=== PATIENT | male | born 1955 | race Caucasian/White ===

== ENCOUNTER → 2017-04-18 | Outpatient (CLI) | payer OTHER ==
[~2017-04-18] VITALS: Ht 179.7 cm; Wt 117.6 kg
[2017-04-18 12:47] VITALS: BP 139/75; PULSE 67; Ht 179.7 cm; Wt 117.6 kg
== END | disposition home or self-care (01) ==
LOC: C.NEUR 11:25
PROVIDERS: ATTEND Internal Medicine Pulmonary Disease
DX: G47.33 Obstructive sleep apnea (adult) (pediatric) (principal); R53.83 Other fatigue

== ENCOUNTER → 2017-07-10 | Outpatient (CLI) | payer OTHER | END | disposition home or self-care (01) | LOC: C.LABPBG 07:40 | PROVIDERS: ATTEND Physician Assistant Medical | DX: R53.83 Other fatigue (principal) ==

== ENCOUNTER → 2017-09-11 | Outpatient (CLI) | payer OTHER ==
[2017-09-11 12:31] LABS: GLUCOSE,FASTING 122 mg/dl (70-99)
[2017-09-11 12:34] LABS: ALT/SGPT 32 U/L (12-78); AST/SGOT 14 U/L (15-37)
[2017-09-11 12:35] LABS: HEMOGLOBIN A1C 5.3 % (4.5-5.6)
== END | disposition home or self-care (01) ==
LOC: C.LABPBG 09:20
PROVIDERS: ATTEND Internal Medicine
DX: R73.03 Prediabetes (principal); E78.5 Hyperlipidemia, unspecified

== ENCOUNTER → 2017-09-26 | Outpatient (CLI) | payer OTHER ==
[~2017-09-26] VITALS: Ht 180.3 cm; Wt 122.9 kg
[2017-09-26 13:07] VITALS: BP 152/83; PULSE 82; Ht 180.3 cm; Wt 122.9 kg
== END | disposition home or self-care (01) ==
LOC: C.NEUR 12:50
PROVIDERS: ATTEND Physician Assistant Medical
DX: G47.33 Obstructive sleep apnea (adult) (pediatric) (principal); E66.9 Obesity, unspecified; Z68.37 Body mass index [BMI] 37.0-37.9, adult; Z88.2 Allergy status to sulfonamides

== ENCOUNTER → 2017-11-15 | Outpatient (CLI) | payer OTHER ==
--- NOTE | 2017-11-15 09:01 | DIAGNOSTIC IMAGING REPORT ---
LEFT KNEE 4 VIEWS CLINICAL HISTORY: Left knee pain. FINDINGS: AP weightbearing, lateral, tunnel, and sunrise views of the left knee are obtained. No prior studies are available for comparison at the time of dictation. The skeletal structures appear osteopenic. No fracture is seen. There is moderate narrowing of the medial and patellofemoral compartments. The lateral compartment appears maintained. There are large marginal osteophytes, degenerative beaking of the tibial spine, and small patellar enthesophytes. No osteochondral defect is suggested on the tunnel view. There is benign appearing cortical sclerosis seen within the medial aspect of the proximal tibial metadiaphysis. No joint effusion is identified. The overlying soft tissues are within normal limits. There is mild atherosclerotic calcification of the popliteal artery. IMPRESSION: Osteopenia and arthritic change as above. No acute bony abnormality is identified in the left knee. Electronically signed by: Miguelito Aaron M.D. 11/15/2017 9:00 AM Dictated Date/Time: 11/15/2017 8:58 AM
== END | disposition home or self-care (01) ==
LOC: C.RAD 08:35
PROVIDERS: ATTEND Physician Assistant
DX: M25.562 Pain in left knee (principal); M85.862 Other specified disorders of bone density and structure, left lower leg

== ENCOUNTER → 2017-11-28 | Outpatient (CLI) | payer OTHER ==
[~2017-11-28] MED LIST: AMLO10TA2 PO; ASPI81CH2 PO; ATOR-24 PO; BUPR-267 PO; BUPR300T43 PO; LISI40TA PO; PRAZ2CAP3 PO
[2017-11-28 12:59] LABS: BASO % 0.2 %; BASO ABS # 0.01 K/uL (0-0.2); EOS % 2.9 %; EOS ABS # 0.16 K/uL (0-0.5); HEMATOCRIT 42.3 % (42-52); HEMOGLOBIN 14.6 g/dL (14.0-18.0); IG# 0.02 K/uL (0.00-0.02); LYMPH % 24.1 %; LYMPH ABS # 1.32 K/uL (1.2-3.4); MEAN CORPUSCULAR HEMOGLOBIN 31.1 pg (25-34); MEAN CORPUSCULAR HGB CONC 34.5 g/dl (32-36); MONO ABS # 0.71 K/uL (0.11-0.59); NEUT % 59.4 %; NEUT ABS # 3.25 K/uL (1.4-6.5); PLATELET COUNT 177 K/uL (130-400); RED CELL DISTRIBUTION WIDTH CV 12.7 % (11.5-14.5); RED CELL DISTRIBUTION WIDTH SD 41.6 fL (36.4-46.3); WHITE BLOOD COUNT 5.47 K/uL (4.8-10.8)
[2017-11-28 13:16] LABS: ALBUMIN 3.7 gm/dl (3.4-5.0); ALT/SGPT 53 U/L (12-78); BLOOD UREA NITROGEN 15 mg/dl (7-18); CALCIUM 9.2 mg/dl (8.5-10.1); CARBON DIOXIDE 28 mmol/L (21-32); CHOLESTEROL 128 mg/dl (0-200); CREATININE 0.98 mg/dl (0.60-1.40); GLUCOSE 104 mg/dl (70-99); POTASSIUM 3.9 mmol/L (3.5-5.1); SODIUM 138 mmol/L (136-145)
[2017-11-28 13:21] LABS: ALKALINE PHOSPHATASE 80 U/L (45-117); AST/SGOT 25 U/L (15-37); LDL CHOLESTEROL CALCULATED 75 mg/dl; TOTAL PROTEIN 6.8 gm/dl (6.4-8.2)
[2017-11-28 13:25] LABS: HEMOGLOBIN A1C 5.3 % (4.5-5.6)
== END | disposition home or self-care (01) ==
LOC: C.LABPBG 07:37
PROVIDERS: ATTEND Internal Medicine
DX: F33.2 Major depressive disorder, recurrent severe without psychotic features (principal); I10 Essential (primary) hypertension; R73.03 Prediabetes; N40.1 Benign prostatic hyperplasia with lower urinary tract symptoms; E78.5 Hyperlipidemia, unspecified

== ENCOUNTER → 2017-11-29 | Outpatient (CLI) | payer OTHER ==
--- NOTE | 2017-11-29 19:40 | DIAGNOSTIC IMAGING REPORT ---
MRI OF THE LEFT KNEE WITHOUT CONTRAST CLINICAL HISTORY: Left knee pain and swelling. COMPARISON STUDY: Left knee radiographs November 07, 2017. TECHNIQUE: Utilizing a 1.5 Liliya magnet and dedicated coil, multiplanar, multiecho imaging of the left knee was performed without intravenous or intraarticular contrast. FINDINGS: Alignment of the left knee is anatomic. Extensor mechanism is intact. There is a trace joint effusion. Note is made of a multiseptated 3.4 x 4.5 x 2.3 cm cystic abnormality posterior to the distal metadiaphysis of the left femur. Adjacent smaller cystic abnormalities are present. There are a few small loose bodies. The cruciate and collateral ligaments are intact. There is severe chondrosis within the medial compartment of the left knee. There is mild chondrosis within the lateral compartment. There is associated osteophytosis. There is moderate to severe chondrosis within the patellofemoral compartment with osteophytosis. There is a complex tear of the medial meniscus which is diminutive and partially extruded. There is no lateral meniscal tear. There is no suspicious marrow replacement. IMPRESSION: 1. Moderate to severe tricompartmental osteoarthritis of the left knee, most severe within the medial and patellofemoral compartments. 2. Complex tear of the medial meniscus which is diminutive and partially extruded. No lateral meniscal tear. 3. Intact cruciate and collateral ligaments. 4. 3.4 x 4.5 x 2.3 cm multiseptated cystic abnormality posterior to the distal metadiaphysis of the left femur with a few adjacent cystic foci. This could reflect a ganglion cyst or less likely a parameniscal cyst. 5. Trace left knee joint effusion with multiple small joint bodies. Electronically signed by: Gaudencio Rasheed M.D. 11/29/2017 7:38 PM Dictated Date/Time: 11/29/2017 7:26 PM
== END | disposition home or self-care (01) ==
LOC: C.MRI 18:27
PROVIDERS: ATTEND Physician Assistant
DX: S83.232A Complex tear of medial meniscus, current injury, left knee, initial encounter (principal); M17.12 Unilateral primary osteoarthritis, left knee; X58.XXXA Exposure to other specified factors, initial encounter

== ENCOUNTER → 2017-12-18 | Day surgery (SDC) | payer OTHER ==
[2017-12-07 16:44] VITALS: Ht 180.3 cm; Wt 123.2 kg
[~2017-12-18] VITALS: Ht 180.3 cm; Wt 123.2 kg
[~2017-12-18] MED LIST changes: +LIDOCAINE HCL 2% 2 ML VIAL (20MG/ML) ONE; +MELATAB2 PO; +PROPOFOL IV EMULSION 10 MG/ML 20 ML VIAL ONE; +SODIUM CHLORIDE 0.9% 500ML 500 ML IV ONE
--- NOTE | 2017-12-18 09:54 | Endo History and Physical ---
History & Physical Date of Service: Dec 18, 2017. Chief Complaint: Screening Referring Physician: Dr. Vallejo History of Present Illness 62 yo CM who presents for screening colonoscopy. Past Surgical History Hx Cardiac Surgery: No Hx Internal Defibrillator: No Hx Pacemaker: No Hx Abdominal Surgery: No Hx of Implantable Prosthesis: No Hx Post-Op Nausea and Vomiting: No Hx Cancer Surgery: No Hx Thoracic Surgery: No Hx Orthopedic: No Hx Urinary Tract Surgery: Yes ([facility] 2012) Family History None Social History Smoking Status: Never Smoker Hx Substance Use: No Hx Alcohol Use: No Allergies Coded Allergies: Sulfa Antibiotics (Verified Allergy, Unknown, HIVES, 12/18/17) Current Medications Reported Home Medications Medications Dose Route/Sig Max Daily Dose Days Date Category Melatonin Maximum Strengt (Melatonin) 5 Mg Tab 1 Tab PO HS 30 12/18/17 Reported Melatonin Maximum Strengt (Melatonin) 5 Mg Tab 1 Tab PO HS 30 12/18/17 Reported Prazosin (Prazosin HCl) 2 Mg Cap 2 Tab PO DAILY 12/07/17 Reported Zestril (Lisinopril) 40 Mg Tab 40 Mg PO DAILY 12/07/17 Reported Bupropion Hcl Xl (Bupropion Hcl) 300 Mg Tab 1 Tab PO DAILY 30 12/07/17 Reported Bupropion Hcl Er (Bupropion Hcl) 150 Mg Tab 1 Tab PO QAM 12/07/17 Reported Lipitor (Atorvastatin Calcium) 40 Mg Tab 1 Tab PO HS 90 12/07/17 Reported Aspirin 81 Mg Chw 1 Tab PO DAILY 30 12/07/17 Reported Norvasc (Amlodipine Besylate) 10 Mg Tab 1 Tab PO DAILY 30 12/07/17 Reported Vital Signs Weight (Kilograms): 123.18 Height (Feet): 5 Height (Inches): 11 Date Time Temp Pulse Resp B/P (MAP) Pulse Ox O2 Delivery O2 Flow Rate FiO2 12/18/17 09:20 36.7 69 18 141/89 (106) 98 Room Air Physical Exam General Appearance: WD/WN, no apparent distress Respiratory/Chest: Auscultation: breath sounds normal Cardiovascular: Heart Auscultation: RRR Abdomen: Bowel Sounds: normal Inspection & Palpation: soft, non-distended, no tenderness, guarding & rebound Assessment and Plan Assessment: 62 yo CM who presents for screening colonoscopy. Plan: Proceed with colonoscopy.
--- NOTE | 2017-12-18 10:38 | Discharge Instructions ---
Endoscopy Patient Instructions Date / Procedure(s) Performed Dec 18, 2017. Colonoscopy Allergy Information Coded Allergies: Sulfa Antibiotics (Verified Allergy, Unknown, HIVES, 12/18/17) Discharge Date / Findings Dec 18, 2017. Colon polyp Diverticulosis Internal hemorrhoids Medication Instructions OK to resume all medications today as prescribed Reported Home Medications Medications Dose Route/Sig Max Daily Dose Days Date Category Melatonin Maximum Strengt (Melatonin) 5 Mg Tab 1 Tab PO HS 30 12/18/17 Reported Melatonin Maximum Strengt (Melatonin) 5 Mg Tab 1 Tab PO HS 30 12/18/17 Reported Prazosin (Prazosin HCl) 2 Mg Cap 2 Tab PO DAILY 12/07/17 Reported Zestril (Lisinopril) 40 Mg Tab 40 Mg PO DAILY 12/07/17 Reported Bupropion Hcl Xl (Bupropion Hcl) 300 Mg Tab 1 Tab PO DAILY 30 12/07/17 Reported Bupropion Hcl Er (Bupropion Hcl) 150 Mg Tab 1 Tab PO QAM 12/07/17 Reported Lipitor (Atorvastatin Calcium) 40 Mg Tab 1 Tab PO HS 90 12/07/17 Reported Aspirin 81 Mg Chw 1 Tab PO DAILY 30 12/07/17 Reported Norvasc (Amlodipine Besylate) 10 Mg Tab 1 Tab PO DAILY 30 12/07/17 Reported Provider Instructions Activity Restrictions - No exercising or heavy lifting for 24 hours. - Do not drink alcohol the day of the procedure. - Do not drive a car or operate machinery until the day after the procedure. - Do not make any important decisions or sign important papers in 24 hours after the procedure. Following Day: - Return to full activity which may include returning to work/school. Diet Start your diet with liquids and light foods (jello, soup, juice, toast). Then eat your usual diet if not nauseated. Treatment For Common After Affects For mild abdominal pain, bloating, or excessive gas: - Rest - Eat lightly - Lie on right side Follow-Up Information Follow-up with as scheduled Anesthesia Information What You Should Know You have had a procedure that required some medicine to reduce anxiety and discomfort. This treatment is called moderate sedation. After receiving the treatment, you may be sleepy, but you will be able to breathe on your own. The effects of the treatment may last for several hours. Follow these instructions along with Activity/Diet recommendations noted above: * Do NOT do anything where dizziness or clumsiness would be dangerous. * Rest quietly at home today, then you can be up and about tomorrow. * Have a responsible person stay with you the rest of today. * You may have had an I.V. today. If so, you may take the dressing off later today. Recommendations Call your doctor if: * Trouble breathing * Continuous vomiting for more than 24 hours * Temperature above 101 degrees * Severe abdominal pain or bloating * Pain not relieved by pain medicine ordered * There is increased drainage or redness from any incision * A large amount of rectal bleeding greater than 2-3 tablespoons. (If you had a polyp/s removed or have hemorrhoids, a small amount of blood - from the rectum is to be expected.) * You have any unanswered questions or concerns. IN THE EVENT OF A SERIOUS EMERGENCY, GO TO THE NEAREST EMERGENCY ROOM Your discharge instructions were prepared by provider Ignacio Fonseca. Patient Instructions Signature Page Jaswant Sahil Patient (or Guardian) Signature/Date: I have read and understand the instructions given to me by my caregivers. Caregiver/RN/Doctor Signature/Date: The above-named patient and/or guardian has received patient instructions on this date. + Original Patient Signature Page (only) stays with chart. Please make copy for patient.
--- NOTE | 2017-12-18 10:41 | GI REPORT ---
Patient Name: Jaswant Baxter Procedure Date: 12/18/2017 9:54 AM Date of : 1955 Admit Type: Outpatient Age: 62 Gender: Male Attending MD: Ignacio Fonseca DO Procedure: Colonoscopy Providers: Ignacio Fonseca DO Referring MD: Denver Vallejo Indications: Screening for colorectal malignant neoplasm Medicines: Monitored Anesthesia Care Complications: No immediate complications. Estimated Blood Loss: Estimated blood loss: none. Procedure: Pre-Anesthesia Assessment: - Prior to the procedure, a History and Physical was performed, and patient medications and allergies were reviewed. The patient's tolerance of previous anesthesia was also reviewed. The risks and benefits of the procedure and the sedation options and risks were discussed with the patient. All questions were answered, and informed consent was obtained. Prior Anticoagulants: The patient has taken no previous anticoagulant or antiplatelet agents. ASA Grade Assessment: II - A patient with mild systemic disease. After reviewing the risks and benefits, the patient was deemed in satisfactory condition to undergo the procedure. After I obtained informed consent, the scope was passed under direct vision. Throughout the procedure, the patient's blood pressure, pulse, and oxygen saturations were monitored continuously. The scope was introduced through the anus and advanced to the terminal ileum. The colonoscopy was performed without difficulty. The patient tolerated the procedure well. The quality of the bowel preparation was good. The terminal ileum, ileocecal valve, appendiceal orifice, and rectum were photographed. Findings: The perianal and digital rectal examinations were normal. A 5 mm polyp was found in the sigmoid colon. The polyp was sessile. The polyp was removed with a hot snare. Resection and retrieval were complete. Multiple small-mouthed diverticula were found in the sigmoid colon. Non-bleeding internal hemorrhoids were found during retroflexion. The hemorrhoids were small. Impression: - One 5 mm polyp in the sigmoid colon, removed with a hot snare. Resected and retrieved. - Diverticulosis in the sigmoid colon. - Non-bleeding internal hemorrhoids. Recommendation: - Resume previous diet. - Continue present medications. - Repeat colonoscopy for surveillance based on pathology results. - Return to primary care physician as previously scheduled. Ignacio Fonseca DO 12/18/2017 10:40:41 AM This report has been signed electronically. Note Initiated On: 12/18/2017 9:54 AM Number of Addenda: 0 I attest to the content of the Intraoperative Record and orders documented therein, exceptions below {[id number]}
--- NOTE | 2017-12-18 10:57 | Anesthesiology Progress Note ---
Anesthesia Post Op Note Date & Time Dec 18, 2017 at 10:57 Vital Signs Vital Signs Past 12 Hours Date Time Temp Pulse Resp B/P (MAP) Pulse Ox O2 Delivery O2 Flow Rate FiO2 12/18/17 10:43 66 16 138/81 (100) 98 Room Air 12/18/17 09:20 36.7 69 18 141/89 (106) 98 Room Air Notes Mental Status: alert / awake / arousable, participated in evaluation Pt Amnestic to Procedure: Yes Nausea / Vomiting: adequately controlled Pain: adequately controlled Airway Patency, RR, SpO2: stable & adequate BP & HR: stable & adequate Hydration State: stable & adequate Anesthetic Complications: no major complications apparent
[2017-12-18 11:13] VITALS: BP 146/91; PULSE 58; O2SAT 98
== END | disposition home or self-care (01) ==
LOC: C.GI 08:37
PROVIDERS: ATTEND Internal Medicine
DX: Z12.11 Encounter for screening for malignant neoplasm of colon (principal); D12.5 Benign neoplasm of sigmoid colon; K64.8 Other hemorrhoids; K57.30 Diverticulosis of large intestine without perforation or abscess without bleeding; G47.33 Obstructive sleep apnea (adult) (pediatric); I10 Essential (primary) hypertension; E66.9 Obesity, unspecified; Z68.38 Body mass index [BMI] 38.0-38.9, adult; Z88.2 Allergy status to sulfonamides; Z79.82 Long term (current) use of aspirin

== ENCOUNTER → 2018-04-03 | Outpatient (CLI) | payer OTHER ==
[~2018-04-03] VITALS: Ht 180.3 cm; Wt 124.4 kg
[~2018-04-03] MED LIST changes: -LIDOCAINE HCL 2% 2 ML VIAL (20MG/ML) ONE; -PROPOFOL IV EMULSION 10 MG/ML 20 ML VIAL ONE; -SODIUM CHLORIDE 0.9% 500ML 500 ML IV ONE
[2018-04-03 16:13] VITALS: BP 144/82; PULSE 71; Ht 180.3 cm; Wt 124.4 kg
== END | disposition home or self-care (01) ==
LOC: C.NEUR 14:54
PROVIDERS: ATTEND Internal Medicine Pulmonary Disease
DX: G47.33 Obstructive sleep apnea (adult) (pediatric) (principal); E66.9 Obesity, unspecified; R53.83 Other fatigue

== ENCOUNTER → 2018-04-12 | Outpatient (CLI) | payer OTHER ==
[2018-04-12 16:41] LABS: BASO % 0.1 %; BASO ABS # 0.01 K/uL (0-0.2); EOS % 13.1 %; EOS ABS # 1.09 K/uL (0-0.5); HEMATOCRIT 43.5 % (42-52); HEMOGLOBIN 15.2 g/dL (14.0-18.0); IG# 0.12 K/uL (0.00-0.02); LYMPH % 18.5 %; LYMPH ABS # 1.54 K/uL (1.2-3.4); MEAN CELL VOLUME 90.2 fL (80-100); MEAN CORPUSCULAR HEMOGLOBIN 31.5 pg (25-34); MEAN CORPUSCULAR HGB CONC 34.9 g/dl (32-36); MEAN PLATELET VOLUME 11.2 fL (7.4-10.4); MONO % 7.7 %; MONO ABS # 0.64 K/uL (0.11-0.59); NEUT % 59.2 %; NEUT ABS # 4.91 K/uL (1.4-6.5); PLATELET COUNT 184 K/uL (130-400); RED CELL DISTRIBUTION WIDTH SD 42.7 fL (36.4-46.3); WHITE BLOOD COUNT 8.31 K/uL (4.8-10.8)
[2018-04-12 17:05] LABS: BLOOD UREA NITROGEN 21 mg/dl (7-18); CARBON DIOXIDE 28 mmol/L (21-32); CREATININE 1.11 mg/dl (0.60-1.40); GLUCOSE 95 mg/dl (70-99); POTASSIUM 4.2 mmol/L (3.5-5.1); SODIUM 140 mmol/L (136-145); TRANSFERRIN 243 mg/dl (200-360)
== END | disposition home or self-care (01) ==
LOC: C.LABPBG 14:30
PROVIDERS: ATTEND Physician Assistant
DX: Z00.00 Encounter for general adult medical examination without abnormal findings (principal); R53.83 Other fatigue